=== PATIENT | male | born 1980 | race Caucasian/White ===

== ENCOUNTER 2019-10-30 22:45 | Emergency (ER) | payer MEDICAID ==
[~2019-10-30] VITALS: Ht 177.8 cm; Wt 80.0 kg
[~2019-10-30 22:45] MED LIST: CYCL-1 PO; HYDR-4353 PO; IBUP-1574 PO; NAPR-56 PO; ONDA4TAB9 PO
[2019-10-30 22:57] VITALS: BP 132/88
[2019-10-30] MEDS ORDERED: NAPR-56 PO (23:24)
[2019-10-30] MEDS ORDERED: naproxen 500mg tablet PO ONE (23:25)
== END 2019-10-30 23:37 | disposition home or self-care (01) ==
LOC: ER 22:46
DX: M79.18 Myalgia, other site (principal); M70.11 Bursitis, right hand; Z72.89 Other problems related to lifestyle; Z79.899 Other long term (current) drug therapy; Y93.89 Activity, other specified
CPT/HCPCS: 29125; 99283

== ENCOUNTER 2023-09-14 16:24 | Emergency (ER) | payer MEDICAID ==
[~2023-09-14] VITALS: Ht 180.3 cm; Wt 65.9 kg
[2023-09-14] MEDS: buprenorphine/naloxone 8MG-2MG SUBlingual film SL ONE (17:18)
[2023-09-14 18:41] VITALS: BP 137/64; PULSE 67; RESP 18; TEMP 97.3; O2SAT 99
== END 2023-09-14 18:44 ==
LOC: ER 16:25 → EEVIPCON 16:25 → ER 18:44
DX: F11.23 Opioid dependence with withdrawal (principal); Z79.899 Other long term (current) drug therapy; Z79.1 Long term (current) use of non-steroidal anti-inflammatories (NSAID)
CPT/HCPCS: 99283